=== PATIENT | male | born 1935 | race Caucasian/White ===

== ENCOUNTER → 2020-02-02 15:48 | Outpatient (REF) | payer MEDICARE, SELFPAY | LOC: ANHLAB 15:48 | PROVIDERS: PCP Internal Medicine; Visit Provider Nurse Practitioner | DX: C44.391 Other specified malignant neoplasm of skin of nose (principal) | CPT/HCPCS: 88305 ==

== ENCOUNTER → 2020-02-27 09:52 | Outpatient (REF) | payer MEDICARE, SELFPAY | LOC: ANHLAB 09:52 | PROVIDERS: PCP Internal Medicine; Visit Provider Nurse Practitioner | DX: C44.90 Unspecified malignant neoplasm of skin, unspecified (principal) | CPT/HCPCS: 88305; 88331 ==

== ENCOUNTER 2021-06-13 13:45 | Outpatient (RCR) | payer MEDICARE, SELFPAY ==
[2021-06-13] MEDS: ACETAMINOPHEN 325 MG TABLET 650 MG PO (14:11)
[2021-06-13] MEDS: FAMOTIDINE 20 MG TABLET PO (14:12)
[2021-06-13] MEDS: diphenhydrAMINE HCl CAP 25 MG CAPSULE PO (14:12)
[2021-06-13 14:25] VITALS: BP 113/62; PULSE 78; RESP 20; O2SAT 99
[2021-06-13 15:45] VITALS: BP 126/69
== END 2021-06-13 16:30 | disposition home or self-care (01) ==
LOC: AMCINF 13:45
PROVIDERS: PCP Internal Medicine; Referring Provider Physician Assistant Medical; Visit Provider Internal Medicine Hematology & Oncology
DX: Z23 Encounter for immunization (principal); U07.1 COVID-19; I10 Essential (primary) hypertension; I25.10 Atherosclerotic heart disease of native coronary artery without angina pectoris; E11.9 Type 2 diabetes mellitus without complications
CPT/HCPCS: A9270; J7050; M0243; Q0244